=== PATIENT | male | born 1940 | race Caucasian/White ===

== ENCOUNTER 2017-04-17 09:53 | Inpatient (IN) | payer OTHER, BC ==
--- NOTE | 2017-04-17 09:56 | EDPHY ---
HPI/HX/ROS/PE/MDM Narrative: CHIEF COMPLAINT: Syncope HPI: The patient is a 76-year-old male with recent left knee replacement, brought in by EMS after multiple syncopal episodes this morning. The patient tried to get out of bed this morning and had a syncopal event. His friends tried to help him up and he had a second syncopal episode. EMS arrived, patient appeared pale, was cold and diaphoretic, pulse was difficult to palpate. After receiving 1.5 liters of fluid, BP was 112/60, patient tried to sit up and had a third syncopal event. He received another 0.5L of fluid, pressure increased to 122/82, pulse 94, 100% on 4L O2. Patient denies chest pain or shortness of breath. The patient has an ostomy bag with dark stool, he states his stool usually appears merchant tailor than today. History is otherwise limited due to patients altered mental status. REVIEW OF SYSTEMS: Aside from elements discussed in the HPI, a comprehensive 10-point review of systems was reviewed and is negative. PMH: Ulcerative colitis, Hypotension, Left knee replacement. SOCIAL HISTORY: Lives at home alone. PHYSICAL EXAM: General: Patient is alert, pale appearing. ENT: Eyes are normal to inspection. ENT inspection normal. Neck: Normal inspection. Full range of motion. Respiratory: No respiratory distress. Breath sounds normal bilaterally. Cardiovascular: Regular rate and rhythm. Strong peripheral pulses. Abdomen: The abdomen is nontender to palpation. Ostomy bag to right lower quadrant with melena. Back: Normal to inspection. No tenderness to palpation. Skin: Pale colored. No rash. Warm and dry. Extremities: Left knee looks clean dry intact. Neuro: Oriented x3. Normal motor function. Normal sensory function. ED Course: Lab work ordered. IV established, patient received IV fluids. Initial BP 81/51. CBC shows severe anemia. Packed red blood cells ordered. Plan to admit the patient. GI was paged. 10:30 a.m.: Patient is becoming increasingly more altered. BP 70/40. Hematocrit is 19. Patient is receiving O negative blood and fluids. EKG was ordered and interpreted by myself. Please see [facility] system for official reading: Sinus tachycardia, borderline prolonged QT interval. 10:35: I spoke to Dr. Regalado, [facility], he will consult on the patient. 10:45 a.m.: I spoke to the hospitalist team, the patient will be admitted to Dr. Salazar. Dr. Regalado informed me the patient has an INR of 3. Medication list now shows patient is on Xarelto. I informed the hospitalist, Dr. Salazar. MDM: Critical care time spent by me, Dr. Mejia, exclusively with this patient was 1 hour 45 minutes, exclusive of procedures. The organ system at risk was GI bleed and I gave packed red blood cells and 2L IV fluids to prevent worsening of the patients condition. The patient was admitted to the hospitalist with Dr. Regalado, Gastroenterology consulting. - Data Points Laboratory Results: Laboratory Results 04/17/17 10:12 04/17/17 10:12 04/17/17 04/17/17 04/17/17 10:12 10:12 10:12 WBC RBC Hgb Hct MCV MCH MCHC RDW Plt Count MPV Neut % (Auto) Lymph % (Auto) [place] % (Auto) Eos % (Auto) Baso % (Auto) Nucleat RBC Rel Count Absolute Neuts (auto) Absolute Lymphs (auto) Absolute Monos (auto) Absolute Eos (auto) Absolute Basos (auto) Absolute Nucleated RBC Immature Gran % Seg Neutrophils % Band Neutrophils % Lymphocytes % Monocytes % Metamyelocytes % Myelocytes % Immature Gran # Absolute Seg Neuts Absolute Band Neuts Absolute Lymphocytes Absolute Monocytes Absolute Metamyelocyte Absolute Myelocytes Nucleated RBCs Platelet Estimate Basophilic Stippling Smear Review By PT 34.6 SEC H SEC (12.0-15.0) INR 3.37 H (0.83-1.16) APTT 29.7 SEC SEC (23.0-38.0) Sodium 127 mEq/L L mEq/L (134-144) Potassium 4.1 mEq/L mEq/L (3.5-5.2) Chloride 91 mEq/L L mEq/L (97-110) Carbon Dioxide 21 mEq/l L mEq/l (22-31) Anion Gap 15 mEq/L mEq/L (8-16) BUN 75 mg/dL H mg/dL (7-23) Creatinine 2.1 mg/dL H mg/dL (0.7-1.3) Estimated GFR 31 Glucose 202 mg/dL H mg/dL (70-100) Calcium 7.4 mg/dL L mg/dL (8.5-10.4) Patient ABO/Rh O NEGATIVE Antibody Screen NEGATIVE Crossmatch IS Only See Detail 04/17/17 10:12 WBC 27.71 10^3/uL H 10^3/uL (3.80-9.50) RBC 1.95 10^6/uL L 10^6/uL (4.40-6.38) Hgb 6.7 g/dL L g/dL (13.7-17.5) Hct 19.8 % L % (40.0-51.0) MCV 101.5 fL H fL (81.5-99.8) MCH 34.4 pg H pg (27.9-34.1) MCHC 33.8 g/dL g/dL (32.4-36.7) RDW 12.9 % % (11.5-15.2) Plt Count 259 10^3/uL 10^3/uL (150-400) MPV 10.6 fL fL (8.7-11.7) Neut % (Auto) Not Reported Lymph % (Auto) Not Reported [place] % (Auto) Not Reported Eos % (Auto) Not Reported Baso % (Auto) Not Reported Nucleat RBC Rel Count 1.5 % H % (0.0-0.2) Absolute Neuts (auto) Not Reported Absolute Lymphs (auto) Not Reported Absolute Monos (auto) Not Reported Absolute Eos (auto) Not Reported Absolute Basos (auto) Not Reported Absolute Nucleated RBC 0.41 10^3/uL H 10^3/uL (0-0.01) Immature Gran % Not Reported Seg Neutrophils % 74 % % Band Neutrophils % 11 % % Lymphocytes % 3 % % Monocytes % 4 % % Metamyelocytes % 5 % % Myelocytes % 3 % % Immature Gran # Not Reported Absolute Seg Neuts 20.51 10^/uL H 10^/uL (1.70-6.50) Absolute Band Neuts 3.05 10^3/uL H 10^3/uL (0.00-0.70) Absolute Lymphocytes 0.83 10^3/uL L 10^3/uL (1.00-3.00) Absolute Monocytes 1.11 10^3/uL H 10^3/uL (0.30-0.80) Absolute Metamyelocyte 1.39 10^3/mL H 10^3/mL (0.00-0.00) Absolute Myelocytes 0.83 10^3/mL H 10^3/mL (0.00-0.00) Nucleated RBCs 2 /100 WBC H /100 WBC (0-0) Platelet Estimate ADEQUATE (ADEQ) Basophilic Stippling 1+ H Smear Review By Pending PT INR APTT Sodium Potassium Chloride Carbon Dioxide Anion Gap BUN Creatinine Estimated GFR Glucose Calcium Patient ABO/Rh Antibody Screen Crossmatch IS Only Medications Given: Discontinued Medications Sodium Chloride (Ns) 1,000 mls @ 0 mls/hr IV ONCE ONE PRN Reason: Wide Open Stop: 04/17/17 10:00 Last Admin: 04/17/17 10:46 Dose: 1,000 mls Sodium Chloride (Ns) 1,000 mls @ 0 mls/hr IV ONCE ONE PRN Reason: Wide Open Stop: 04/17/17 10:27 Last Admin: 04/17/17 10:48 Dose: 1,000 mls General Initial Vital Signs: Initial Vital Signs Temperature (C) 36.3 C 04/17/17 10:03 Heart Rate 100 04/17/17 10:03 Respiratory Rate 14 04/17/17 10:03 Blood Pressure 89/51 L 04/17/17 10:03 O2 Sat (%) 92 04/17/17 10:03 O2 Delivery Mode Room Air Allergies/Adverse Reactions: No Known Allergies Allergy (Unverified 04/17/17 10:02) Home Medications: Medication Instructions Recorded Acetaminophen [Tylenol ES 500 mg 500 mg PO DAILY PRN 04/17/17 (*)] Dutasteride [Avodart 0.5 MG (*)] 0.5 mg PO Q2D@21 04/17/17 Levothyroxine [Synthroid 150 mcg 150 mcg PO DAILY06 04/17/17 (*)] Meloxicam 7.5 mg PO BID 04/17/17 Methocarbamol [Robaxin 750 mg (*)] 750 mg PO QID PRN 04/17/17 Rivaroxaban [Xarelto 10mg (*)] 10 mg PO DAILY 04/17/17 Tamsulosin HCl [Flomax 0.4 MG (*)] 0.4 mg PO BID 04/17/17 oxyCODONE IR [Oxycodone Ir (*)] 5 - 10 mg PO Q4-6PRN PRN 04/17/17 Departure - Departure Disposition: [facility] Inpatient Acute Clinical Impression: Hemorrhagic shock, Severe anemia GI bleed Qualifiers: GI bleed type/associated pathology: melena Qualified Code(s): K92.1 - Melena Condition: Fair Report Scribed for: Alfred Mejia Report Scribed by: Monica Tello Date of Report: 04/17/17 Time of Report: 10:05 Physician Review and Approval Statement: Portions of this note were transcribed by a medical services manager. I personally performed the history, physical exam, and medical decision-making; and confirmed the accuracy of the information in the transcribed note.
[2017-04-17] MEDS ORDERED: NS 1,000 ML IV ONE ×2 (09:59→10:26)
[2017-04-17 10:18] LABS: ABSOLUTE NRBC COUNT 0.41 10^3/uL (0-0.01); ADD DIFF? YES; ATYPICAL LYMPHOCYTE FLAG 0 (0-99); FRAGMENT RBC FLAG 0 (0-99); HEMATOCRIT 19.8 % (40.0-51.0); LIPEMIA HEMOLYSIS FLAG 90 (0-99); MEAN CELL HEMOGLOBIN 34.4 pg (27.9-34.1); MEAN CELL HEMOGLOBIN CONCENTR. 33.8 g/dL (32.4-36.7); MEAN CELL VOLUME 101.5 fL (81.5-99.8); MEAN PLATELET VOLUME 10.6 fL (8.7-11.7); PLATELET CLUMPS FLAG 30 (0-99); PLATELET COUNT 259 10^3/uL (150-400); RED BLOOD CELL COUNT 1.95 10^6/uL (4.40-6.38); RED CELL DISTRIBUTION WIDTH 12.9 % (11.5-15.2)
[2017-04-17 10:19] LABS: ADD MORPH? NO; ADD SCAN? NO; HEMOGLOBIN 6.7 g/dL (13.7-17.5); LEFT SHIFT FLG 250 (0-99); NRBC-AUTO% 1.5 % (0.0-0.2)
[2017-04-17 10:30] LABS: APTT 29.7 SEC (23.0-38.0); INR 3.37 (0.83-1.16); PROTIME(PATIENT) 34.6 SEC (12.0-15.0)
--- NOTE | 2017-04-17 10:40 | CPEKG ---
Heart Rate: 96 RR Interval: 625 P-R Interval: 176 QRSD Interval: 92 QT Interval: 380 QTC Interval: 481 P Herreid: 49 QRS Herreid: 8 T Wave Herreid: 33 EKG Severity - ABNORMAL ECG - EKG Impression: SINUS TACHYCARDIA EKG Impression: MULTIPLE VENTRICULAR PREMATURE COMPLEXES EKG Impression: BORDERLINE PROLONGED QT INTERVAL Electronically Signed By: Petar Gibbs 18-Apr-2017 08:01:06
[2017-04-17 10:43] LABS: PLATELET ESTIMATE ADEQUATE (ADEQ)
[2017-04-17 10:50] LABS: ANION GAP 15 mEq/L (8-16); CALCIUM 7.4 mg/dL (8.5-10.4); CARBON DIOXIDE 21 mEq/l (22-31); CHLORIDE 91 mEq/L (97-110); CREATININE 2.1 mg/dL (0.7-1.3); GLOMERULAR FILTRATION RATE 31; GLUCOSE 202 mg/dL (70-100); POTASSIUM 4.1 mEq/L (3.5-5.2); SODIUM 127 mEq/L (134-144)
[2017-04-17] MEDS ORDERED: PANTOPRAZOLE SODIUM 80 MG in NS 100 ML IV ONE (10:53)
[2017-04-17 12:07] LABS: HEMATOCRIT 23.2 % (40.0-51.0)
[2017-04-17] MEDS ORDERED: PROMETHAZINE HCL 25 MG/ML INJ IVP PRN (12:36)
[2017-04-17] MEDS ORDERED: ONDANSETRON DISINTEGRATING 4 MG TAB PO PRN (12:36)
[2017-04-17] MEDS ORDERED: HYDROmorphONE/DILAUDID 1 MG/ML SYR IVP PRN (12:36)
[2017-04-17] MEDS ORDERED: ONDANSETRON 4 MG/2 ML VIAL IVP PRN (12:36)
[2017-04-17] MEDS ORDERED: METHOCARBAMOL 750 MG TAB PO PRN (12:40)
[2017-04-17] MEDS ORDERED: oxyCODONE IR 5 MG TAB PO PRN ×2 (12:40→12:48)
[2017-04-17 12:42] LABS: ALBUMIN 1.8 g/dL (3.5-5.0); BILIRUBIN,TOTAL 1.3 mg/dL (0.1-1.4); BILIRUBIN-CONJUGATED 0.5 mg/dL (0.0-0.5); BILIRUBIN-UNCONJUGATED 0.8 mg/dL (0.0-1.1); TOTAL PROTEIN 3.4 g/dL (6.3-8.2)
[2017-04-17] MEDS: PANTOPRAZOLE SODIUM 80 MG in NS 100 ML IV SCH ×2 (12:48→20:15)
[2017-04-17 13:36] LABS: INR 3.26 (0.83-1.16); PROTIME(PATIENT) 33.7 SEC (12.0-15.0)
--- NOTE | 2017-04-17 13:44 | GHP ---
[f rep st] HISTORY AND PHYSICAL DATE OF ADMISSION: 04/17/2017 HISTORY OF PRESENT ILLNESS: The patient is a pleasant 76-year-old gentleman who had a total knee ar throplasty last week. He was discharged from the hospital 4 days prior to admission. He was taking oxycodone at home and had significant nausea and vomiting. He had about 4 episodes of nonbloody he matemesis; there were no coffee-grounds. He did well over the weekend controlling his pain with Tyl enol. He also takes meloxicam as an outpatient. Then this morning, he developed a black stool in h is ostomy. It was fairly large volume. He had no hematemesis or coffee-ground emesis. He denies a ny history of lower extremity edema, sclerae icterus, or jaundice. He has about 2 glasses of wine i n the evening. He does not smoke cigarettes. He has not really had much in abdominal pain. He not es some burning in his throat. No fever, chills, cough, or sputum. He has not had a previously known upper GI bleed. He has had his ostomy for 47 years. It was performed because of ulcerative colitis. It sounds like he does not have symptoms any longer. The patient was prescribed rivaroxaban, or Xarelto, for VTE prophylaxis following his knee surgery. His last dose was yesterday a.m., 04/16. REVIEW OF SYSTEMS: Complete 10-point review of systems conducted and negative except as noted in th e HPI. PAST MEDICAL HISTORY: 1. Remote ulcerative colitis with ostomy. 2. BPH. 3. Hypothyroidism. 4. Osteoarthritis. 5. Hypothyroidism. ALLERGIES: No known drug allergies. MEDICATIONS: Acetaminophen, meloxicam, rivaroxaban, dutasteride, levothyroxine, methocarbamol, oxyc odone, tamsulosin. 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 He lives here in [place] with his . Two glasses of wine in the evening. No tobacco. FAMILY HISTORY: Reviewed and unremarkable. PHYSICAL EXAMINATION: VITAL SIGNS: Temp 36.3, blood pressure 89/51, pulse 100-112, breathing 14 ti mes a minute, 90% on room air. GENERAL: No acute distress. HEENT: Sclerae anicteric. Oropharynx is clear. Mucous membranes are moist. NECK: Supple without lymphadenopathy or JVD. LUNGS: Nettie r to auscultation bilaterally. HEART: S1, S2. Tachycardic. ABDOMEN: Soft. There is no ascites. There is no rebound or guarding. His ostomy contains scant black stool that is semi-solid. EXTRE MITIES: Lower extremities show there is some edema on the left, which he just had knee replacement. There is no edema on the right. His incision is clean, dry, and intact without fluctuance or eryt tiera. LABORATORY DATA: INR 3.37. White count 27.7, hematocrit is 19.8 with a hemoglobin of 6.7 after 2 u nits; it was 8 and 23.2. His MCV is elevated at 101.5, platelet count is 259. Sodium 127, potassiu m 4.1, chloride 91, bicarb 25, BUN 75, creatinine 2.1(his baseline is less than 1). His glucose is 202. LFTs show an albumin of 1.8 but are otherwise somewhat unremarkable. EKG, interpreted by me, shows sinus at 96 with normal axis and intervals. There are no ST or T-wave changes. I have discussed the case with Dr. Alfred Mejia. ASSESSMENT/PLAN: This is a 76-year-old gentleman with postoperative likely upper gastrointestinal b leed. 1. Upper gastrointestinal bleed. This is likely attributed to NSAIDs plus anticoagulation and vomi ting. I suspect he has a Sylvia-Rizvi tear. Noted is his elevated MCV and low albumin. It is pos sible patient has underlying liver disease. He does not have any physical exam findings, but I also noted INR which is elevated out of step from Xarelto therapy, although the INR is notoriously unrel iable with novel anticoagulation therapy. I will give the patient 2 additional units of blood, prot on pump inhibitor therapy in a drip. The bleeding appears to have slowed down, so we will hold off on octreotide. Should it restart, we can go ahead and start octreotide. 2. Elevated INR, attributable to Xarelto therapy plus/minus liver disease, but we will check some L FTs. 3. History of knee arthroplasty. His knee looks good. We will need to hold DVT prophylaxis for th e time being. 4. Tachycardia, attributed to acute blood loss. 5. Acute blood loss anemia from upper gastrointestinal bleed. 6. Prophylaxis. Pharmacologic prophylaxis is contraindicated. SCDs in place. 7. Benign prostatic hypertrophy. Continue his alpha omar and [id number] inhibitor. DISPOSITION: Inpatient status. /[id number]/MODL
[2017-04-17] MEDS: OCTREOTIDE ACETATE 500 MCG in D5W 50 ML IV SCH ×2 (13:46→20:14)
--- NOTE | 2017-04-17 14:24 | GCON ---
[f rep st] CONSULTATION HISTORY OF PRESENT ILLNESS: The patient is a 76-year-old white male with a past medical history of ulcerative colitis and left knee replacement. He was in the emergency room with a syncopal episode. Apparently he had passed out several times that morning. It began after getting out of bed in the morning. He was subsequently admitted to the intensive care unit. He was markedly anemic. He has been transfused 2 units of packed red cells. He has been seen by GI, anticipate endoscopy soon. Nilson long was found to have an INR of 3.0. He is on Xarelto. PAST MEDICAL HISTORY: Again significant for ulcerative colitis, left knee replacement. ALLERGIES: No known allergies to medications. SOCIAL HISTORY: No history of tobacco use. Infrequent alcohol use. He lives at home with his . He has excellent family support. MEDICATIONS: At home include meloxicam, Robaxin, Xarelto, Flomax, oxycodone. PHYSICAL EXAM: VITAL SIGNS: Blood pressure is 84/46, pulse 113, respirations 21, temperature 36.6, oxygen saturation 98% on 2 L. GENERAL: He is a well-developed, well-nourished 76-year-old white m gemini who is somewhat pale but resting comfortably. HEENT: Eyes: PERRLA. EOMI. Throat shows no er ythema or tonsillar hypertrophy. NECK: Supple. No cervical adenopathy. HEART: Regular rate and rhythm with a 2/6 systolic murmur at the left sternal border without radiation. LUNGS: Diminished breath sounds but no wheeze. ABDOMEN: Soft, nontender. Bowel sounds are present in all 4 quadrant s. EXTREMITIES: No clubbing, cyanosis, or edema. LABORATORIES: White count 27,000, hemoglobin 8, hematocrit 23, platelet count is 259, MCV is 101. INR 3.26. Sodium 127, potassium 4.1, chloride 91, CO2 21, BUN 75, creatinine 2.1, glucose is 202. IMPRESSION: 1. Gastrointestinal bleed. 2. Hemorrhagic shock. 3. Coagulopathy secondary to Xarelto. 4. Hyponatremia. 5. Acute renal failure. 6. Benign prostatic hypertrophy. 7. Hypothyroidism. RECOMMENDATIONS: 1. Agree with GI consult. 2. Follow H and H closely, transfusing appropriately. 3. IV fluids. 4. Bed rest. 5. Agree with H2 omar. /[id number]/MODL
[2017-04-17] MEDS: NS 1,000 ML IV SCH ×2 (16:33→17:40)
--- NOTE | 2017-04-17 16:35 | POSTOPPROG ---
Post Op Note Date of Operation: 04/17/17 Surgeon: Mateo Regalado Anesthesiologist: fabio Anesthesia: GET(General Endotracheal) (intubated for UGI bleed) Pre-op Diagnosis: melena, anemia acute Post-op Diagnosis: esophagitis, blood and clots in stomach precludes full view, no ulcer noted Indication: melena, acute post hemorrhagic anemia Procedure: EGD Findings: grade c esophagitis, no duodenal ulcer, blood and clots in stomach Inf/Abcess present in the surg proc area at time of surgery?: No EBL: none from egd, lots of blood in stomach Complications: none immediate
[2017-04-17 16:38] LABS: HEMATOCRIT 22.7 % (40.0-51.0); HEMOGLOBIN 7.8 g/dL (13.7-17.5)
[2017-04-17] MEDS ORDERED: ALTEPLASE 2 MG VIAL IVP PRN (17:18)
--- NOTE | 2017-04-17 17:25 | GPN ---
[f rep st] PROCEDURE NOTE DATE OF PROCEDURE: 04/17/2017 INDICATION: Presumed upper GI bleed with melena, posthemorrhagic anemia in a patient on Xarelto and nonsteroidal anti-inflammatory drugs. PREOPERATIVE DIAGNOSIS: Rule out peptic ulcer disease. POSTOPERATIVE DIAGNOSIS: 1. Grade C reflux esophagitis in the distal half of the esophagus. No active bleeding. 2. Normal duodenum without evidence of ulceration, but somewhat coated with blood 3. Normal angularis and antrum without evidence of ulceration, but somewhat coated with blood. 4. No evidence of Sylvia-Rizvi tear on forward or retroflexed view to gastroesophageal junction. 5. Large amount of blood clots and blood in the stomach that precluded complete view. INFORMED CONSENT: I discussed with the patient and his regarding the procedure alternatives, benefits, and risks, including bleeding, perforation, infection, risks of medication. Informed consent was signed and witnessed. COMPLICATIONS: None immediate. MEDICATIONS USED: General anesthesia as per Dr. Wise. PROCEDURE: After general anesthesia the patient intubated. We moved him into his left lateral decubitus position. I used the therapeutic upper endoscope, inserted via oropharynx, and advanced under direct visualization down the esophagus. The proximal esophagus was normal. The mid and distal esophagus he had grade C esophagitis. No active bleeding was noted. Significant ulcerations were noted. The endoscope was advanced into the stomach. A large amount of blood and blood clots were noted in the stomach along the greater curvature. Did a retroflexed examination to view the GE junction. There was no evidence of gastric varices or Sylvia-Rizvi tear. The endoscope was un- retroflexed and advanced down to the antrum. I had a reasonable view of the antrum, where there were no ulcerations. I was able to advance into the duodenum. I suctioned out old blood in the duodenum. I did not notice any ulcers in the duodenal bulb or sweep. I withdrew back into the stomach and tried to retroflex. Again, I was not able to view the entire stomach secondary to blood clot. We did move the patient onto his back and then into a right lateral decubitus position to try to move the blood clot. I was able to view more tissue. I did not see any ulceration or any active bleeding. Again, there was a large amount of blood and blood clots in the stomach that precluded a complete view. However, when patients have significant active bleeding, I usually see some red blood welling up somewhere, and this did not occur during the entire exam. The patient was then repositioned onto his back. I withdrew the endoscope, confirming the above findings. The patient tolerated the procedure well and was transferred to the recovery area in guarded condition from his significant GI bleed. IMPRESSION: 1. Grade C esophagitis. 2. No evidence of esophageal varices or Sylvia-Rizvi tear. 3. Normal retroflexed view of the cardia of the stomach with no evidence of Sylvia-Rizvi tear or gastric varices. 4. Normal antrum and angularis without evidence of ulcerations or mass. 5. Normal duodenum without evidence of ulcerations, but somewhat coated with blood 6. A large amount of blood and blood clot in the stomach that precluded complete view. RECOMMENDATIONS: 1. Continue PPI IV continuous. 2. I think you can stop octreotide after this bag is finished. 3. Hold anticoagulation and any aspirin or nonsteroidal anti-inflammatory drugs. 4. Continue to transfuse the patient as per the hospitalist. I would like to have his hemoglobin at least greater than 8 because I think there may be continued bleeding, although his blood loss may have been related to his grade C esophagitis. 5. Repeat EGD tomorrow morning at 8:30 with anesthesia to reassess. 6. Patient is n.p.o. except for medications. 7. We will give a dose of Reglan at 7:30 tomorrow morning to see if we can empty the stomach of any remaining blood and blood clots. 8. Hospitalist will decide about appropriate anticoagulation after this upper GI bleed has ceased and I have been able to give them an estimation of risk of rebleeding in the very near future. 9. Further recommendations to follow results of above and clinical course. Thank you for allowing me to participate in his healthcare. Please do not hesitate to call me with any questions. /[id number]/MODL MTDD
--- NOTE | 2017-04-17 17:30 | GCON ---
[f rep st] CONSULTATION DATE OF CONSULTATION: 04/17/2017 REFERRING PHYSICIAN: Quinton Salazar MD REASON FOR CONSULTATION: Presumed upper GI bleed with melena and acute post hemorrhagic anemia. HISTORY OF PRESENT ILLNESS: The patient is a pleasant 76-year-old male, who has a history of ulcer colitis, status post total colectomy back in 1970; BPH, hypothyroidism, osteoarthritis, who underwent a total knee near the end of March. He was in usual state of health until this morning when he woke up and noted to have black tarry stools in his ostomy bag. He did have some nausea and vomiting approximately 4 days prior to admission when he took oxycodone at home but none in the subsequent 3 days prior to his presentation with his melena. He had near-syncope and does not remember a whole lot from the morning. He was brought to the emergency room by his . He was noted to have significant anemia with melena in his bag in a patient, who has been on anticoagulation with Xarelto and taking some nonsteroidal anti-inflammatory medications. He is now being admitted for the above and I am called to help and evaluate an acute upper GI bleed in a patient on Xarelto. PAST MEDICAL HISTORY: Ulcer colitis, status post colectomy in 1970; BPH, hypothyroidism, osteoarthritis. SURGICAL HISTORY: Total colectomy and the knee surgery. He has also had tonsillectomy and right inguinal hernia repair. HOME MEDICATIONS: levothyroxine 150 mcg, Oxy IR prn, Tamsulosin 0.8 mg QHS, Xarelto (held), Meloxicam bid, Tylenol prn ALLERGIES: No known drug allergies. Oxycodone causes nausea, vomiting which is not truly an allergy. SOCIAL HISTORY: He does not smoke cigarettes. He drinks 2 glasses of wine a night. FAMILY HISTORY: No cancers to his knowledge, no colon polyps. REVIEW OF SYSTEMS: A complete Review of Systems was obtained and negative other than noted in the HPI. Pertinent negatives include no chest pain, diaphoresis, shortness of breath, hemoptysis, hematemesis, hematuria. PHYSICAL EXAM: GENERAL: A well-developed, well-nourished elderly male lying in his ICU bed in no acute distress. VITAL SIGNS: Blood pressure 95/50, pulse is 110, respiration 29. He is 97% on 2 L nasal cannula. Temperature is 36.6. EYES: Anicteric. GISELLE, EOMI. MOUTH: No lesions. NECK: Supple. No JVD. No thyroid mass. No lymphadenopathy. BACK: No spine tenderness. No CVA tenderness. LUNGS: Clear to auscultation. CARDIAC: S1, S2. Tachycardic. I do not appreciate murmurs, rubs or gallops. ABDOMEN: Bowel sounds are normal in pitch and frequency. Abdomen is soft with some epigastric subxiphoid tenderness. No rebound or guarding. No hepatosplenomegaly. He has melenic stools in his ostomy bag. EXTREMITIES: No cyanosis, clubbing, or edema on the right. There is slight edema on the left where he had his knee replacement. NEUROLOGIC: Cranial nerves intact. Nonfocal. SKIN: No stigmata of advanced liver disease. LABORATORY DATA: WBC 27.71, hemoglobin 6.7, hematocrit 19.8, MCV 101.5, platelet count 259. Pro time 34.6, INR 3.37, PTT 29.7. Sodium 127, potassium 4.1, chloride 91, bicarb 21, BUN 75, creatinine 2.1, glucose 202, calcium 7.4. Total bilirubin 1.3, unconjugated 0.8, AST 50, ALT 48, alk phos 61, total protein 3.4, albumin 1.8. Previous laboratory data from March 10, 2017; hemoglobin 15.4, hematocrit 44.3. Pro time 12.9, INR 0.98. From March 10, 2017; BUN 16, creatinine 0.9. ASSESSMENT: 1. Acute post hemorrhagic anemia. 2. Melena. 3. Long-term use of anticoagulation, Xarelto. 4. Long-term use of nonsteroidal anti-inflammatory medications. 5. Distant history of ulcer colitis, status post total colectomy. 6. Benign prostatic hyperplasia. 7. Hypothyroidism. RECOMMENDATIONS: 1. Transfuse as per hospitalist. 2. Given the use of Xarelto, FFP is not going to correct his pro time. There is no current reversal agent as he took his Xarelto yesterday morning. It should be off for 48 hours and have significant less effect at that time. Continue PPI. 3. Patient is on octreotide. After urgent EGD, I think we may stop that as I doubt he has varices. 4. Emergent/urgent EGD for presumed significant upper gastrointestinal bleed in this patient, who has orthostatic hypotension, tachycardia, and significant posthemorrhagic anemia. 5. Given the patient's probable continued upper gastrointestinal bleed, I am going to ask Anesthesia to be involved. I expect they will intubate the patient to protect his airway. They are expecting a lot of blood in the upper gastrointestinal tract. 6. Given all the acute issues, this will be a high-risk procedure. Patient will be monitored continuously. Anesthesia will be present to monitor the patient and sedate the patient. 7. Further recommendations to follow results of above and clinical course. Thank you for allowing me to participate in the patient's healthcare. Do not hesitate to call me with any questions. /[id number]/MODL MTDD
[2017-04-17] MEDS: TAMSULOSIN HCL 0.4 MG CAP PO SCH (20:14)
[2017-04-17 20:53] LABS: HEMOGLOBIN 10.8 g/dL (13.7-17.5)
[2017-04-17] MEDS ORDERED: DUTASTERIDE 0.5 MG CAP PO SCH (21:00)
--- NOTE | 2017-04-17 22:03 | HOSPPROG ---
Hospitalist Progress Note Assessment/Plan: Called to see patient earlier today because of hypotension, tachycardia and continued melena. Patient is mentating well denies any dizziness. Does look pale. Heart rate in the 1 teens. Blood pressure in the 70s. Last hemoglobin after 2 units of packed red blood cells stays stable at 8. I discussed the case with Gastroenterology who just did an EGD was on unable to find the source of bleeding - because of unstable vital signs we will transfuse 2 units packed red blood cells. Have also ordered a PICC line to ensure adequate IV access. Will continue monitoring H&H is frequently and transfuse as needed. Will recall GI if continuing to bleed 35 minutes of critical care time were spent with this patient Objective: Vital Signs Temp Pulse Resp BP Pulse Ox 36.6 C 119 H 18 116/68 95 04/17/17 20:00 04/17/17 20:00 04/17/17 20:00 04/17/17 20:00 04/17/17 20:00 Laboratory Results 04/17/17 20:45 04/16/17 04/17/17 04/18/17 05:59 05:59 05:59 Intake Total 7560 Output Total 1925 Balance 5635 PT 33.7 SEC (12.0-15.0) H 04/17/17 13:00 INR 3.26 (0.83-1.16) H 04/17/17 13:00 ICD10 Worksheet Patient Problems: Problems Problem Status Onset GI bleed Acute Hemorrhagic shock Acute Severe anemia Acute
[2017-04-17] MEDS ORDERED: ALBUTEROL 3 ML DEYVIAL IH PRN (23:10)
[2017-04-18 01:21] LABS: HEMATOCRIT 28.3 % (40.0-51.0); HEMOGLOBIN 10.1 g/dL (13.7-17.5)
[2017-04-18 04:47] LABS: ABSOLUTE NRBC COUNT 1.39 10^3/uL (0-0.01); ADD DIFF? YES; ADD MORPH? YES; ATYPICAL LYMPHOCYTE FLAG 10 (0-99); FRAGMENT RBC FLAG 0 (0-99); HEMOGLOBIN 9.8 g/dL (13.7-17.5); LIPEMIA HEMOLYSIS FLAG 90 (0-99); MEAN CELL HEMOGLOBIN 31.8 pg (27.9-34.1); MEAN CELL HEMOGLOBIN CONCENTR. 36.3 g/dL (32.4-36.7); MEAN CELL VOLUME 87.7 fL (81.5-99.8); MEAN PLATELET VOLUME 10.4 fL (8.7-11.7); PLATELET CLUMPS FLAG 10 (0-99); PLATELET COUNT 138 10^3/uL (150-400); RED BLOOD CELL COUNT 3.08 10^6/uL (4.40-6.38); RED CELL DISTRIBUTION WIDTH 15.9 % (11.5-15.2)
[2017-04-18 04:56] LABS: INR 1.86 (0.83-1.16); PROTIME(PATIENT) 21.5 SEC (12.0-15.0)
[2017-04-18 04:59] LABS: LEFT SHIFT FLG 180 (0-99); NRBC-AUTO% 3.9 % (0.0-0.2)
[2017-04-18 05:04] LABS: ANION GAP 6 mEq/L (8-16); CALCIUM 6.7 mg/dL (8.5-10.4); CARBON DIOXIDE 23 mEq/l (22-31); CHLORIDE 105 mEq/L (97-110); CREATININE 1.3 mg/dL (0.7-1.3); GLOMERULAR FILTRATION RATE 54; GLUCOSE 173 mg/dL (70-100); POTASSIUM 4.1 mEq/L (3.5-5.2); SODIUM 134 mEq/L (134-144)
[2017-04-18 06:05] LABS: ADD SCAN? NO
[2017-04-18 06:08] LABS: PLATELET ESTIMATE DECREASED (ADEQ)
[2017-04-18 06:09] LABS: HYPOCHROMIA 1+; MICROCYTES 1+; POLYCHROMASIA 2+
[2017-04-18] MEDS: PANTOPRAZOLE SODIUM 80 MG in NS 100 ML IV SCH ×2 (06:24→16:22)
[2017-04-18] MEDS ORDERED: METOCLOPRAMIDE 10 MG/2 ML VIAL IVP ONE (07:30)
[2017-04-18] MEDS ORDERED: MIDAZOLAM 2 MG/2 ML VIAL ONE (08:29)
[2017-04-18] MEDS ORDERED: PROPOFOL 200 MG/20 ML VIAL ONE (08:31)
--- NOTE | 2017-04-18 08:57 | PDINTPN ---
Lye Peel Operator Progress Note Assessment/Plan: Assessment/plan: * Upper GI bleed-initial endoscopy was unrevealing. -repeat endoscopy today * Anemia-has been transfused 6 units packed red cells in total. H&H has remained stable for now * Hypovolemia-still quite orthostatic. -will increase volume with both crystalloids and colloids * Bilateral lower lobe infiltrates. Likely aspiration. Patient is afebrile, but WBC count is elevated -will start antibiotics now covering aspiration * Acute renal failure-BUN and creatinine are improved. Will continue hydration * VT prophylaxis-hold anticoagulation for now continue SCDs Subjective: Resting comfortably. Feels better, except when sitting up which causes dizziness. Objective: Vital Signs Temp Pulse Resp BP Pulse Ox 36.7 C 107 H 17 113/58 L 93 04/18/17 04:00 04/18/17 06:00 04/18/17 06:00 04/18/17 06:00 04/18/17 06:00 Laboratory Results 04/18/17 04:38 04/18/17 04:38 04/17/17 04/18/17 04/19/17 05:59 05:59 05:59 Intake Total 8332.4 Output Total 3257 Balance 5075.4 PT 21.5 SEC (12.0-15.0) H D 04/18/17 04:38 INR 1.86 (0.83-1.16) H 04/18/17 04:38 Chest [id number] by myself. There are bilateral infiltrates likely aspiration Physical Exam - Physical Exam General Appearance: alert, no apparent distress EENT: PERRL/EOMI, normal ENT inspection Neck: non-tender, full range of motion, supple, normal inspection Respiratory: chest non-tender, rhonchi (Few), No lungs clear Cardiac/Chest: normal peripheral pulses, regular rate, rhythm Peripheral Pulses: 2+: carotid (R), carotid (L), femoral (R), femoral (L), dorsalis-pedis (R), dorsalis-pedis (L) Abdomen: normal bowel sounds, non-tender, soft Male Genitalia: deferred Rectal: deferred Skin: normal color, warm/dry ICD10 Worksheet Patient Problems: Problems Problem Status Onset GI bleed Acute Hemorrhagic shock Acute Severe anemia Acute
[2017-04-18] MEDS ORDERED: LIDOCAINE 2% 5 ML SDV ONE (09:02)
[2017-04-18] MEDS ORDERED: ROCURONIUM 50 MG/5 ML VIAL ONE (09:02)
[2017-04-18] MEDS ORDERED: ONDANSETRON 4 MG/2 ML VIAL ONE (09:02)
[2017-04-18] MEDS ORDERED: ALBUMIN 5% 500 ML IV ONE (09:03)
--- NOTE | 2017-04-18 09:41 | POSTOPPROG ---
Post Op Note Date of Operation: 04/18/17 Surgeon: Mateo Regalado Anesthesiologist: latricia Anesthesia: GET(General Endotracheal) Pre-op Diagnosis: ugi bleed Post-op Diagnosis: esophagitis, small duodenal ulcer without stigmata, blood and clots in stom Indication: ugi bleed Procedure: egd Findings: esophagitis, small duodenal ulcer without stigmate and blood and clots in s Inf/Abcess present in the surg proc area at time of surgery?: No EBL: Minimal (few ml) Complications: none immediate
--- NOTE | 2017-04-18 09:49 | SOAPPROG ---
[facility] Progress Note Assessment/Plan: Assessment:Plan: see full EGD dictation still with significant amount of old blood and clots in stomach grade c esophagitis with small amount of heme antrum and angularis and cardia look OK small duodenal ulcer without stigmata of bleeding moderate duodenitis with area of small amount of oozing heme rec's IV PPI if stable consider relook in few days serial Hb/HCT, transfuse if Hb < 8 in this pt or if active bleeding follow calcium - repleted during EGD by Anesthesia will discuss DVT prophylaxis with hospitalist I expect his bleeding has stopped. his anticoagulation should be returning to normal today An ulcer is more likely to have caused this sig blood loss, but there maybe more then one source given his anticoagulation Dr. Schwab is taking over inpt service at 5pm today 04/18/17 09:41 Objective: Vital Signs Temp Pulse Resp BP Pulse Ox 36.8 C 105 H 15 105/54 L 95 04/18/17 08:00 04/18/17 08:00 04/18/17 08:00 04/18/17 08:00 04/18/17 08:00 Laboratory Results 04/18/17 04:38 04/18/17 04:38 04/17/17 04/18/17 04/19/17 05:59 05:59 05:59 Intake Total 8332.4 Output Total 3257 Balance 5075.4 PT 21.5 SEC (12.0-15.0) H D 04/18/17 04:38 INR 1.86 (0.83-1.16) H 04/18/17 04:38 ICD10 Worksheet Patient Problems: Problems Problem Status Onset GI bleed Acute Hemorrhagic shock Acute Severe anemia Acute
[2017-04-18] MEDS ORDERED: CLINDAMYCIN 600 MG/DEXTROSE 50 ML IV SCH ×2 (10:00→14:00)
[2017-04-18] MEDS ORDERED: PROTOCOL CALCIUM 1 DOSE IV PRN (10:24)
--- NOTE | 2017-04-18 11:51 | GPN ---
[f rep st] PROCEDURE NOTE DATE OF PROCEDURE: 04/18/2017 PROCEDURE: Esophagogastroduodenoscopy. INDICATION: Upper GI bleed with melena, post hemorrhagic anemia with EGD having significant blood and blood clots in the stomach and unable to view the tissue well. Repeat procedure for re-evaluation. INFORMED CONSENT: I did discuss with the patient regarding the procedure, alternatives, benefits, and risks including bleeding, perforation, infection, risk of medication. PREOPERATIVE DIAGNOSIS: Rule out peptic ulcer disease. POSTOPERATIVE DIAGNOSES: 1. Grade C esophagitis. 2. Still with a large amount of blood and blood clots in the stomach. 3. No evidence of ulceration on his angularis or antrum. 4. No evidence of esophageal varices or gastric varices or Sylvia-Rizvi tear. 5. Small duodenal ulcer in the junction of the antrum in the 2nd portion with flat spot. 6. Moderate duodenitis. 7. Very fragile tissue with a small amount of heme present when this endoscope rubbed some of the gastric tissue and the duodenal tissue. DESCRIPTION OF PROCEDURE: Initially we attempted this with just propofol as I thought the patient would have finished bleeding and an empty stomach without blood in it given his stable hemoglobin overnight, and I gave him Reglan at 7: 30 this morning. He was in the left decubitus position with propofol sedation. The forward-viewing upper endoscope was inserted via the oropharynx and advanced under direct visualization down the esophagus. The proximal esophagus was normal. The mid to distal esophagus had grade C esophagitis. The endoscope was advanced into the stomach, and there was a fair amount of blood and blood clots in the stomach. I then withdrew the endoscope, and the patient was placed back into supine position and underwent general endotracheal intubation. I then had the patient remain in supine position. I reinserted the endoscope via the oropharynx and advanced under direct visualization down the esophagus. Again, the proximal esophagus was normal. The mid to distal esophagus had grade 3 esophagitis. The endoscope was advanced into the stomach. There was significant blood and blood clots. The endoscope was advanced into the antrum. The area was washed. There were no ulcerations in the antrum. The endoscope was advanced into the duodenal. There was moderate duodenitis. Multiple washings were obtained. I had a better view of the duodenum and the antrum with washings than I did yesterday. There was a very small ulcer on the junction between the bulb and the 2nd portion. It had a flat spot, no active bleeding and no stigmata that will require therapy. Moderate duodenitis was present. There is a small amount of heme in multiple areas from the mild trauma from the scope. The endoscope was withdrawn back in the stomach. A retroflexed examination was performed. In order to view more of the stomach, we then placed the patient in the left lateral decubitus position. A fair amount of blood clots was able to be removed but not entirely ; again, I had a limited view of the gastric body and greater curvature of the stomach. In addition, there was some blood in the antrum and angularis but I washed it off reasonably well, and I do not think there are any significant ulcerations underneath that. I attempted to suction all the blood and clean it as much as I could, but the blood clots prevented this. I removed as much of the liquid blood as I could. And we then removed all the air. The endoscope was then completely withdrawn, confirming the above findings. The patient tolerated the procedure well and was transferred to recovery area in continued guarded condition. IMPRESSION: 1. Grade C esophagitis with a small amount of heme. 2. Blood clots and blood in the fundus and body of the stomach. 3. Normal-appearing antrum and angularis. 4. Small ulcer in the duodenum between the bulb and the 2nd portion with flat spot and no active bleeding and no stigmata that required treatment. 5. Moderate duodenitis with friable tissue. RECOMMENDATIONS: 1. Continue IV PPI. 2. Serial hemoglobins and hematocrits. 3. Keep n.p.o. for now. 4. If patient remains stable, would advance to clear liquids later and consider endoscopy in a few days. If patient is unstable, then would consider endoscopy and/or some type a bleeding scan. I think that the risk of continued bleeding is quite low given that the anticoagulation should be returning to normal. He has not had his Xarelto for approximately 48 hours. 5. We will discuss with Dr. Salazar regarding the need for DVT prophylaxis. I would prefer him to be off anticoagulation for another day if possible. 6. Transfuse if hemoglobin becomes less than 8 or for any active bleeding. 7. Hold anticoagulation and antiplatelet medications at present. 8. Further recommendations to follow the results of above and clinical course. Thank you for allowing me to participate in this patient's healthcare. Do not hesitate to call me with any questions. /[id number]/MODL MTDD
[2017-04-18 12:04] LABS: HEMATOCRIT 23.7 % (40.0-51.0); HEMOGLOBIN 8.4 g/dL (13.7-17.5)
[2017-04-18] MEDS ORDERED: NS 1,000 ML IV ONE (12:30)
--- NOTE | 2017-04-18 13:00 | HOSPPROG ---
Hospitalist Progress Note Assessment/Plan: 76 yo M w hypothyroidism, recent TKA admitted w UGIB. now about to get 7th unit of blood UGIB: endosocopy X 2 w esophagitis and smal DU bit no active bleeding continue transfusions, ppi etiology likely NSAIDS plus anticoag coagulopathy: xarelto likely largely worn off given large volume transfusion, will give ffp follow inr daily hypotension: 2/2 ongoing blood loss = hemorrhagic shock. tachycardic but not hypotensive pulm infiltrates: likely aspiration pneumonia started on clindamycin leukocytosis: attributable to ugib plus aspirtaion proph: high risk for VTE but actively bleeding so cannot use pharm VTE proph scd's Subjective: case discussed w wale sweeney and nirav. continues to bleed. repeat egd w small DU and esophagitis Objective: Vital Signs Temp Pulse Resp BP Pulse Ox 36.8 C 101 H 18 102/49 L 96 04/18/17 10:44 04/18/17 12:00 04/18/17 12:00 04/18/17 12:00 04/18/17 12:00 Laboratory Results 04/18/17 11:46 04/18/17 04:38 04/17/17 04/18/17 04/19/17 05:59 05:59 05:59 Intake Total 8332.4 500 Output Total 3257 50 Balance 5075.4 450 PT 21.5 SEC (12.0-15.0) H D 04/18/17 04:38 INR 1.86 (0.83-1.16) H 04/18/17 04:38 - Physical Exam Constitutional: no apparent distress, appears nourished Eyes: PERRL, anicteric sclera Ears, Nose, Mouth, Throat: moist mucous membranes, hearing normal Cardiovascular: regular rate and rhythym, no murmur, rub, or gallop Respiratory: no respiratory distress, no rales or rhonchi Gastrointestinal: normoactive bowel sounds, soft, non-tender abdomen, No guarding, No rebound Genitourinary: No felix in urethra Skin: warm, normal color Musculoskeletal: full muscle strength, no muscle tenderness Neurologic: AAOx3, sensation intact bilaterally Psychiatric: interacting appropriately, not anxious Lymph, Heme, Immunologic: no cervical LAD ICD10 Worksheet Patient Problems: Problems Problem Status Onset GI bleed Acute Hemorrhagic shock Acute Severe anemia Acute
[2017-04-18] MEDS: TAMSULOSIN HCL 0.4 MG CAP PO SCH (13:16)
[2017-04-18] MEDS: LEVOTHYROXINE 150 MCG TAB PO SCH (13:16)
[2017-04-18] MEDS: NS 1,000 ML IV SCH (16:30)
[2017-04-18 17:50] LABS: HEMATOCRIT 24.8 % (40.0-51.0)
[2017-04-18] MEDS: CLINDAMYCIN 600 MG/DEXTROSE 50 ML IV SCH (19:15)
[2017-04-18 23:21] LABS: HEMATOCRIT 22.9 % (40.0-51.0); HEMOGLOBIN 8.2 g/dL (13.7-17.5)
[2017-04-19] MEDS: DUTASTERIDE 0.5 MG CAP PO SCH (00:10)
[2017-04-19] MEDS: PANTOPRAZOLE SODIUM 80 MG in NS 100 ML IV SCH (02:53)
[2017-04-19] MEDS: CLINDAMYCIN 600 MG/DEXTROSE 50 ML IV SCH ×3 (02:53→17:11)
[2017-04-19 03:18] LABS: IONIZED CALCIUM 1.15 MMOL/L (1.12-1.30)
[2017-04-19 03:21] LABS: HEMATOCRIT 23.1 % (40.0-51.0); HEMOGLOBIN 8.1 g/dL (13.7-17.5)
[2017-04-19 03:30] LABS: INR 1.27 (0.83-1.16); PROTIME(PATIENT) 15.9 SEC (12.0-15.0)
[2017-04-19 04:15] LABS: ABSOLUTE NRBC COUNT 1.85 10^3/uL (0-0.01); ADD DIFF? YES; ADD MORPH? YES; ATYPICAL LYMPHOCYTE FLAG 10 (0-99); FRAGMENT RBC FLAG 0 (0-99); LIPEMIA HEMOLYSIS FLAG 90 (0-99); MEAN CELL HEMOGLOBIN 31.8 pg (27.9-34.1); MEAN CELL HEMOGLOBIN CONCENTR. 34.6 g/dL (32.4-36.7); MEAN CELL VOLUME 91.8 fL (81.5-99.8); MEAN PLATELET VOLUME 10.2 fL (8.7-11.7); PLATELET CLUMPS FLAG 0 (0-99); PLATELET COUNT 107 10^3/uL (150-400); RED BLOOD CELL COUNT 2.55 10^6/uL (4.40-6.38); RED CELL DISTRIBUTION WIDTH 16.6 % (11.5-15.2)
[2017-04-19 04:27] LABS: ADD SCAN? NO; LEFT SHIFT FLG 240 (0-99); NRBC-AUTO% 5.9 % (0.0-0.2)
[2017-04-19 04:34] LABS: ANION GAP 5 mEq/L (8-16); CALCIUM 7.6 mg/dL (8.5-10.4); CARBON DIOXIDE 25 mEq/l (22-31); CHLORIDE 109 mEq/L (97-110); CREATININE 0.9 mg/dL (0.7-1.3); GLOMERULAR FILTRATION RATE > 60; GLUCOSE 93 mg/dL (70-100); POTASSIUM 3.6 mEq/L (3.5-5.2); SODIUM 139 mEq/L (134-144)
[2017-04-19 06:52] LABS: PLATELET ESTIMATE DECREASED (ADEQ); POLYCHROMASIA 2+; TOXIC GRANULATION PRESENT
[2017-04-19] MEDS: LEVOTHYROXINE 150 MCG TAB PO SCH (07:54)
[2017-04-19] MEDS: NS 1,000 ML IV SCH (09:05)
--- NOTE | 2017-04-19 09:36 | PDINTPN ---
Pier Master Progress Note Assessment/Plan: Assessment/plan: * Upper GI bleed- * Anemia-hemoglobin and hematocrit a little down. -old transfusion for now * Hypovolemia-resolved * Bilateral lower lobe infiltrates. Likely aspiration. Patient is afebrile, but WBC count is elevated -will start antibiotics now covering aspiration * Acute renal failure-BUN and creatinine are improved. Will continue hydration * VT prophylaxis-hold anticoagulation for now continue SCDs * Disposition-okay for transfer to floor Subjective: Up in chair-resting comfortably Objective: Vital Signs Temp Pulse Resp BP Pulse Ox 36.6 C 90 19 136/53 H 94 04/19/17 08:00 04/19/17 08:00 04/19/17 08:00 04/19/17 08:00 04/19/17 08:00 Laboratory Results 04/19/17 03:00 04/19/17 03:30 04/18/17 04/19/17 04/20/17 05:59 05:59 05:59 Intake Total 8332.4 4311 Output Total 3257 3500 275 Balance 5075.4 811 -275 PT 15.9 SEC (12.0-15.0) H 04/19/17 03:00 INR 1.27 (0.83-1.16) H 04/19/17 03:00 Laboratory Results 04/19/17 03:00 04/19/17 03:30 04/19/17 04/18/17 04/18/17 03:00 23:03 17:30 Hgb 8.2 g/dL L g/dL 9.0 g/dL L g/dL (13.7 - 17.5) (13.7 - 17.5) Hct 22.9 % L % 24.8 % L % (40.0 - 51.0) (40.0 - 51.0) INR 1.27 H (0.83 - 1.16) Physical Exam - Physical Exam General Appearance: alert, no apparent distress EENT: PERRL/EOMI, normal ENT inspection, pharynx normal, TMs normal Neck: non-tender, full range of motion, supple, normal inspection Respiratory: chest non-tender, lungs clear, normal breath sounds Cardiac/Chest: normal peripheral pulses, regular rate, rhythm Abdomen: normal bowel sounds, non-tender, soft Male Genitalia: deferred Rectal: deferred Skin: normal color, warm/dry Extremities: normal range of motion, non-tender, normal inspection, normal capillary refill ICD10 Worksheet Patient Problems: Problems Problem Status Onset GI bleed Acute Hemorrhagic shock Acute Severe anemia Acute
--- NOTE | 2017-04-19 09:57 | HOSPPROG ---
Hospitalist Progress Note Assessment/Plan: 76 yo M w hypothyroidism, recent TKA admitted w UGIB. now about to get 7th unit of blood UGIB: endosocopy X 2 w esophagitis and small DU but no active bleeding etiology likely NSAIDS plus anticoag appears to have stabilized hold prophylactic anticoag add'l day coagulopathy: xarelto likely largely worn off given large volume transfusion, will give ffp inr improving follow inr daily hypotension: 2/2 ongoing blood loss = hemorrhagic shock. tachycardic but not hypotensive pulm infiltrates: likely aspiration pneumonia started on clindamycin day 3 leukocytosis: attributable to ugib plus aspirtaion proph: high risk for VTE but actively bleeding so cannot use pharm VTE proph scd's plan is to start LMWH 04/20 Subjective: case d.w wale gastelum and patel. HR down, hct stable Objective: Vital Signs Temp Pulse Resp BP Pulse Ox 36.6 C 90 19 136/53 H 94 04/19/17 08:00 04/19/17 08:00 04/19/17 08:00 04/19/17 08:00 04/19/17 08:00 Laboratory Results 04/19/17 03:00 04/19/17 03:30 04/18/17 04/19/17 04/20/17 05:59 05:59 05:59 Intake Total 8332.4 4311 Output Total 3257 3500 275 Balance 5075.4 811 -275 PT 15.9 SEC (12.0-15.0) H 04/19/17 03:00 INR 1.27 (0.83-1.16) H 04/19/17 03:00 - Physical Exam Constitutional: no apparent distress, appears nourished Eyes: PERRL, anicteric sclera Ears, Nose, Mouth, Throat: moist mucous membranes, hearing normal Cardiovascular: regular rate and rhythym, no murmur, rub, or gallop, No tachycardia Respiratory: no respiratory distress, other (bibasilar crackles), No no rales or rhonchi Gastrointestinal: normoactive bowel sounds, soft, non-tender abdomen Genitourinary: No felix in urethra Skin: warm, normal color Musculoskeletal: full muscle strength, no muscle tenderness, other (hand edema. L knee incision c/d/i) Neurologic: AAOx3, sensation intact bilaterally Psychiatric: interacting appropriately, not anxious ICD10 Worksheet Patient Problems: Problems Problem Status Onset GI bleed Acute Hemorrhagic shock Acute Severe anemia Acute
--- NOTE | 2017-04-19 11:29 | SOAPPROG ---
SOAP Progress Note Assessment/Plan: Assessment: GIB with esophagitis and DU still passing melena which is to be expected given large amount of old blood seen in stomach. Otherwise clinically stable suspect bleeding has stopped. Patient does not want another EGD Plan: Clear liquids today Continue IV PPI thigh today Consider IR if rebleeds 04/19/17 11:26 Subjective: CC melena Pt with out pain no N?V still with melena Objective: Vital Signs Temp Pulse Resp BP Pulse Ox 36.6 C 90 18 121/60 H 97 04/19/17 08:00 04/19/17 10:00 04/19/17 10:00 04/19/17 10:00 04/19/17 10:00 Laboratory Results 04/19/17 03:00 04/19/17 03:30 04/18/17 04/19/17 04/20/17 05:59 05:59 05:59 Intake Total 8332.4 4311 36 Output Total 3257 3500 450 Balance 5075.4 811 -414 PT 15.9 SEC (12.0-15.0) H 04/19/17 03:00 INR 1.27 (0.83-1.16) H 04/19/17 03:00 Physical Exam - Physical Exam General Appearance: alert, no apparent distress Respiratory: lungs clear Cardiac/Chest: regular rate, rhythm Abdomen: non-tender, soft ICD10 Worksheet Patient Problems: Problems Problem Status Onset GI bleed Acute Hemorrhagic shock Acute Severe anemia Acute
[2017-04-19 13:20] LABS: HEMATOCRIT 25.1 % (40.0-51.0); HEMOGLOBIN 8.8 g/dL (13.7-17.5)
[2017-04-19] MEDS: ACETAMINOPHEN 325 MG TAB PO PRN ×2 (13:22→21:16)
[2017-04-19] MEDS: PANTOPRAZOLE SODIUM 40 MG in NS 100 ML IV SCH (21:16)
[2017-04-20] MEDS: CLINDAMYCIN 600 MG/DEXTROSE 50 ML IV SCH (01:48)
[2017-04-20] MEDS: LEVOTHYROXINE 150 MCG TAB PO SCH (04:59)
[2017-04-20 05:10] LABS: ABSOLUTE NRBC COUNT 1.77 10^3/uL (0-0.01); ADD DIFF? YES; ATYPICAL LYMPHOCYTE FLAG 0 (0-99); FRAGMENT RBC FLAG 0 (0-99); HEMATOCRIT 25.8 % (40.0-51.0); HEMOGLOBIN 8.9 g/dL (13.7-17.5); LIPEMIA HEMOLYSIS FLAG 90 (0-99); MEAN CELL HEMOGLOBIN 32.1 pg (27.9-34.1); MEAN CELL HEMOGLOBIN CONCENTR. 34.5 g/dL (32.4-36.7); MEAN CELL VOLUME 93.1 fL (81.5-99.8); MEAN PLATELET VOLUME 10.4 fL (8.7-11.7); PLATELET CLUMPS FLAG 10 (0-99); PLATELET COUNT 112 10^3/uL (150-400); RED BLOOD CELL COUNT 2.77 10^6/uL (4.40-6.38); RED CELL DISTRIBUTION WIDTH 17.8 % (11.5-15.2)
[2017-04-20 05:16] LABS: IONIZED CALCIUM 1.11 MMOL/L (1.12-1.30)
[2017-04-20 05:19] LABS: INR 1.13 (0.83-1.16); PROTIME(PATIENT) 14.4 SEC (12.0-15.0)
[2017-04-20 05:20] LABS: LEFT SHIFT FLG 160 (0-99); NRBC-AUTO% 5.6 % (0.0-0.2)
[2017-04-20 05:21] LABS: ADD MORPH? NO; ADD SCAN? NO
[2017-04-20 05:39] LABS: ALANINE AMINOTRANSFERASE 66 IU/L (21-72); ALBUMIN 2.2 g/dL (3.5-5.0); ALKALINE PHOSPHATASE 63 IU/L (38-126); ANION GAP 4 mEq/L (8-16); ASPARTATE AMINOTRANSFERASE 62 IU/L (17-59); BILIRUBIN,TOTAL 1.6 mg/dL (0.1-1.4); BILIRUBIN-CONJUGATED 0.4 mg/dL (0.0-0.5); BILIRUBIN-UNCONJUGATED 1.2 mg/dL (0.0-1.1); CALCIUM 7.8 mg/dL (8.5-10.4); CARBON DIOXIDE 23 mEq/l (22-31); CHLORIDE 110 mEq/L (97-110); CREATININE 0.8 mg/dL (0.7-1.3); GLOMERULAR FILTRATION RATE > 60; GLUCOSE 104 mg/dL (70-100); POTASSIUM 3.5 mEq/L (3.5-5.2); SODIUM 137 mEq/L (134-144); TOTAL PROTEIN 4.1 g/dL (6.3-8.2)
[2017-04-20 06:03] LABS: PLATELET ESTIMATE DECREASED (ADEQ)
[2017-04-20 06:04] LABS: POLYCHROMASIA 2+
[2017-04-20] MEDS ORDERED: CALCIUM GLUCONATE 50 ML IV ONE (07:33)
--- NOTE | 2017-04-20 09:13 | HOSPPROG ---
Hospitalist Progress Note Assessment/Plan: 76 yo M w hypothyroidism, recent TKA admitted w UGIB. now about to get 7th unit of blood UGIB: endosocopy X 2 w esophagitis and small DU but no active bleeding etiology likely NSAIDS plus anticoag appears to have stabilized start LMWH today change ppi to po coagulopathy: xarelto likely largely worn off given large volume transfusion, will give ffp inr improving follow inr daily hypotension: 2/2 ongoing blood loss = hemorrhagic shock. tachycardic but not hypotensive pulm infiltrates: likely aspiration pneumonia change abx to augmentin leukocytosis: attributable to ugib plus aspiration proph: high risk for VTE but actively bleeding so cannot use pharm VTE proph scd's plan is to start LMWH 04/20 Subjective: no further bleeding. hct stable. case d/w dr baca Objective: Vital Signs Temp Pulse Resp BP Pulse Ox 36.9 C 83 16 121/70 H 97 04/20/17 08:00 04/20/17 08:00 04/20/17 08:00 04/20/17 08:00 04/20/17 08:00 Laboratory Results 04/20/17 05:00 04/20/17 05:00 04/19/17 04/20/17 04/21/17 05:59 05:59 05:59 Intake Total 4311 1336 Output Total 3500 1850 Balance 811 -514 PT 14.4 SEC (12.0-15.0) 04/20/17 05:00 INR 1.13 (0.83-1.16) 04/20/17 05:00 - Physical Exam Constitutional: no apparent distress, appears nourished Eyes: PERRL, anicteric sclera Ears, Nose, Mouth, Throat: moist mucous membranes, hearing normal Cardiovascular: regular rate and rhythym, no murmur, rub, or gallop Respiratory: no respiratory distress, no rales or rhonchi Gastrointestinal: normoactive bowel sounds, soft, non-tender abdomen, other ( dark (not black) liquid stool in bag) Genitourinary: No felix in urethra Skin: warm, normal color Musculoskeletal: full muscle strength, no muscle tenderness Neurologic: AAOx3, sensation intact bilaterally Psychiatric: interacting appropriately, not anxious ICD10 Worksheet Patient Problems: Problems Problem Status Onset GI bleed Acute Hemorrhagic shock Acute Severe anemia Acute
[2017-04-20] MEDS: ACETAMINOPHEN 325 MG TAB PO PRN ×3 (09:20→21:34)
[2017-04-20] MEDS: TAMSULOSIN HCL 0.4 MG CAP PO SCH ×2 (09:20→21:29)
[2017-04-20] MEDS: PANTOPRAZOLE SODIUM 40 MG in NS 100 ML IV SCH (09:49)
[2017-04-20] MEDS: ENOXAPARIN 40 MG/0.4 ML SYR SC SCH (10:12)
--- NOTE | 2017-04-20 10:32 | SOAPPROG ---
SOAP Progress Note Assessment/Plan: Assessment: GIB with esophagitis and DU still passing melena which is to be expected given large amount of old blood seen in stomach. No signs of rebleeding. Patient dose not want another EGD. Plan: OK to change to PPI PI BID for 4 weeks then once daily Can advance diet slowly as tolerated Will sign off for now. Consider IR if rebleeding 04/20/17 10:30 Subjective: CC Melena Still passing dark stools but otherwise feels better Objective: Vital Signs Temp Pulse Resp BP Pulse Ox 36.3 C 79 16 137/78 H 95 04/20/17 08:00 04/20/17 08:00 04/20/17 08:00 04/20/17 08:00 04/20/17 08:00 Laboratory Results 04/20/17 05:00 04/20/17 05:00 04/19/17 04/20/17 04/21/17 05:59 05:59 05:59 Intake Total 4311 1336 Output Total 3500 1850 Balance 811 -514 PT 14.4 SEC (12.0-15.0) 04/20/17 05:00 INR 1.13 (0.83-1.16) 04/20/17 05:00 Physical Exam - Physical Exam General Appearance: WD/WN, alert Respiratory: lungs clear Cardiac/Chest: regular rate, rhythm Abdomen: normal bowel sounds, non-tender ICD10 Worksheet Patient Problems: Problems Problem Status Onset GI bleed Acute Hemorrhagic shock Acute Severe anemia Acute
[2017-04-20] MEDS: AMOXICILLIN/CLAVULANATE POT 875/125 MG TAB PO SCH (21:28)
[2017-04-20] MEDS: PANTOPRAZOLE SODIUM 40 MG TAB PO SCH (21:29)
[2017-04-20] MEDS: DUTASTERIDE 0.5 MG CAP PO SCH (21:29)
[2017-04-21] MEDS: AMOXICILLIN/CLAVULANATE POT 875/125 MG TAB PO SCH (09:30)
[2017-04-21] MEDS: ENOXAPARIN 40 MG/0.4 ML SYR SC SCH (09:30)
[2017-04-21] MEDS: TAMSULOSIN HCL 0.4 MG CAP PO SCH (09:30)
[2017-04-21] MEDS: PANTOPRAZOLE SODIUM 40 MG TAB PO SCH (09:30)
--- NOTE | 2017-04-21 11:17 | HOSPPROG ---
Hospitalist Progress Note Assessment/Plan: 76 yo M w hypothyroidism, recent TKA admitted w UGIB. now about to get 7th unit of blood UGIB: endosocopy X 2 w esophagitis and small DU but no active bleeding etiology likely NSAIDS plus anticoag appears to have stabilized stable on LMWH coagulopathy: xarelto likely largely worn off given large volume transfusion, will give ffp inr improving follow inr daily hypotension: 2/2 ongoing blood loss = hemorrhagic shock. tachycardic but not hypotensive pulm infiltrates: likely aspiration pneumonia change abx to augmentin leukocytosis: attributable to ugib plus aspiration proph: high risk for VTE but actively bleeding so cannot use pharm VTE proph scd's plan is to start LMWH / home today > 30 minutes Subjective: ready for dc. hct stable Objective: Vital Signs Temp Pulse Resp BP Pulse Ox 36.7 C 76 14 139/81 H 95 04/21/17 00:11 04/21/17 00:11 04/21/17 00:11 04/21/17 00:11 04/21/17 00:11 Laboratory Results 04/20/17 05:00 04/20/17 04/21/17 04/22/17 05:59 05:59 05:59 Intake Total 1336 2600 Output Total 1850 Balance -514 2600 PT 14.4 SEC (12.0-15.0) 04/20/17 05:00 INR 1.13 (0.83-1.16) 04/20/17 05:00 - Physical Exam Constitutional: no apparent distress, appears nourished Eyes: PERRL, anicteric sclera Ears, Nose, Mouth, Throat: moist mucous membranes, hearing normal Cardiovascular: regular rate and rhythym, no murmur, rub, or gallop, systolic murmur Respiratory: no respiratory distress, no rales or rhonchi Gastrointestinal: normoactive bowel sounds, soft, non-tender abdomen Genitourinary: no bladder fullness, No felix in urethra Skin: warm, normal color Musculoskeletal: full muscle strength Neurologic: AAOx3 ICD10 Worksheet Patient Problems: Problems Problem Status Onset GI bleed Acute Hemorrhagic shock Acute Severe anemia Acute
[2017-04-21 11:24] VITALS: BP 145/78; PULSE 75; RESP 16; TEMP 97.7; O2SAT 94
[2017-04-21] MEDS: LEVOTHYROXINE 150 MCG TAB PO SCH (11:29)
[2017-04-21 13:49] LABS: ABSOLUTE NRBC COUNT 0.69 10^3/uL (0-0.01); ADD DIFF? YES; ADD MORPH? YES; ADD SCAN? YES; ATYPICAL LYMPHOCYTE FLAG 10 (0-99); FRAGMENT RBC FLAG 20 (0-99); HEMATOCRIT 30.1 % (40.0-51.0); HEMOGLOBIN 10.5 g/dL (13.7-17.5); LIPEMIA HEMOLYSIS FLAG 90 (0-99); MEAN CELL HEMOGLOBIN 32.8 pg (27.9-34.1); MEAN CELL HEMOGLOBIN CONCENTR. 34.9 g/dL (32.4-36.7); MEAN CELL VOLUME 94.1 fL (81.5-99.8); MEAN PLATELET VOLUME 10.8 fL (8.7-11.7); PLATELET CLUMPS FLAG 10 (0-99); PLATELET COUNT 152 10^3/uL (150-400); RED CELL DISTRIBUTION WIDTH 18.9 % (11.5-15.2)
[2017-04-21 13:50] LABS: LEFT SHIFT FLG 160 (0-99); NRBC-AUTO% 2.6 % (0.0-0.2)
[2017-04-21 13:52] LABS: MICROCYTES 1+; PLATELET ESTIMATE ADEQUATE (ADEQ)
[2017-04-21 13:53] LABS: POLYCHROMASIA 1+
== END 2017-04-21 13:42 | disposition home or self-care (01) | DRG 377 ==
LOC: EDUNIT# → F2N 11:40 → F1N 04-19 16:29
PROVIDERS: ADMIT Internal Medicine; ATTEND Internal Medicine
PROC: 30233K1 Transfusion of Nonautologous Frozen Plasma into Peripheral Vein, Percutaneous Approach (ICD-10-PCS; 2017-04-17)
PROC: 30233P1 Transfusion of Nonautologous Frozen Red Cells into Peripheral Vein, Percutaneous Approach (ICD-10-PCS; 2017-04-17)
PROC: 02HV33Z Insertion of Infusion Device into Superior Vena Cava, Percutaneous Approach (ICD-10-PCS; 2017-04-17)
PROC: 0DJ68ZZ Inspection of Stomach, Via Natural or Artificial Opening Endoscopic (ICD-10-PCS; principal; 2017-04-17 15:00)
PROC: 0DJ08ZZ Inspection of Upper Intestinal Tract, Via Natural or Artificial Opening Endoscopic (ICD-10-PCS; principal; 2017-04-17 15:00)
PROC: 0DJ68ZZ Inspection of Stomach, Via Natural or Artificial Opening Endoscopic (ICD-10-PCS; 2017-04-18)
PROC: 0DJ08ZZ Inspection of Upper Intestinal Tract, Via Natural or Artificial Opening Endoscopic (ICD-10-PCS; 2017-04-18)
DX: K26.4 Chronic or unspecified duodenal ulcer with hemorrhage (principal); J69.0 Pneumonitis due to inhalation of food and vomit; K29.81 Duodenitis with bleeding; K20.9 Esophagitis, unspecified; D62 Acute posthemorrhagic anemia; R55 Syncope and collapse; E03.9 Hypothyroidism, unspecified; N40.0 Benign prostatic hyperplasia without lower urinary tract symptoms; N17.9 Acute kidney failure, unspecified; T39.395A Adverse effect of other nonsteroidal anti-inflammatory drugs [NSAID], initial encounter; Z96.652 Presence of left artificial knee joint; Z98.890 Other specified postprocedural states; Z93.3 Colostomy status
CPT/HCPCS: 97110-GP; 97116-GP; 97162-GP; 97166-GO; 97530-GP; 97535-GO; C1751; G8978-GP-CJ; G8979-GP-CI; G8980-GP-CI; G8987-GO-CJ; G8988-GO-CI; G8989-GO-CI; J0610; J1650; J2250; J2353; J2405; J2704; J2765; P9016; P9017; P9021

== ENCOUNTER 2017-04-28 17:42 | Emergency (ER) | payer OTHER, BC ==
[2017-04-28 17:51] VITALS: RESP 16
--- NOTE | 2017-04-28 18:51 | EDPHY ---
H & P Stated Complaint: u/s today dvt left leg, recent knee surgery Time Seen by Provider: 04/28/17 18:27 HPI/ROS: CHIEF COMPLAINT: DVT HISTORY OF PRESENT ILLNESS: The patient is a 76-year-old man who comes to the emergency department complaining of a DVT to his left calf. He was following up with Dr. Kenney his primary physician today who ordered an ultrasound. A DVT was found him sent here to the ER. He is currently on once a day dosing of Lovenox. He is not sure of the dose. Previously he after the knee replacement 2 weeks ago he was taking Xarelto but had a GI bleed and was hospitalized and transfused. At this point he was changed to once a day dosing of Lovenox. He does not have a fever. No chest pain or shortness of breath. REVIEW OF SYSTEMS: Constitutional: denies: chills, fever, recent illness, recent injury EENTM: denies: blurred vision, double vision, nose congestion Respiratory: denies: cough, shortness of breath Cardiac: denies: chest pain, irregular heart rate, lightheadedness, palpitations Gastrointestinal/Abdominal: denies: abdominal pain, diarrhea, nausea, vomiting, blood streaked stools Genitourinary: denies: dysuria, frequency, hematuria, pain Musculoskeletal: See HPI Skin: denies: lesions, rash, jaundice, bruising Neurological: denies: headache, numbness, paresthesia, tingling, dizziness, weakness Hematologic/Lymphatic: denies: blood clots, easy bleeding, easy bruising Immunologic/allergic: denies: HIV/AIDS, transplant EXAM: GENERAL: Well-appearing, well-nourished and in no acute distress. HEAD: Atraumatic, normocephalic. EYES: Pupils equal round and reactive to light, extraocular movements intact, sclera anicteric, conjunctiva are normal. ENT: TMs normal, nares patent, oropharynx clear without exudates. Moist mucous membranes. NECK: Normal range of motion, supple without lymphadenopathy or JVD. LUNGS: Breath sounds clear to auscultation bilaterally and equal. No wheezes rales or rhonchi. HEART: Regular rate and rhythm without murmurs, rubs or gallops. ABDOMEN: Soft, nontender, normoactive bowel sounds. No guarding, no rebound. No masses appreciated. BACK: No CVA tenderness, no spinal tenderness, step-offs or deformities EXTREMITIES: Minimal swelling in left ankle. No calf tenderness, left knee with mild swelling, wound is clean dry and intact. NEUROLOGICAL: Cranial nerves II through XII grossly intact. Normal speech, normal gait. 5/5 strength, normal movement in all extremities, normal sensation PSYCH: Normal mood, normal affect. SKIN: Warm, dry, normal turgor, no visible rashes or lesions. 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 enlarged prostate, hypo thyroid - Family History Significant Family History: No pertinent family hx - Social History Smoking Status: Former smoker Alcohol Use: Sober Drug Use: None Constitutional: Initial Vital Signs Temperature (C) 36.4 C 04/28/17 17:48 Heart Rate 74 04/28/17 17:48 Respiratory Rate 16 04/28/17 17:48 Blood Pressure 127/74 H 04/28/17 17:48 O2 Sat (%) 98 04/28/17 17:48 O2 Delivery Mode Room Air Allergies/Adverse Reactions: oxycodone Allergy (Verified 04/28/17 17:45) Home Medications: Medication Instructions Recorded Dutasteride [Avodart 0.5 MG (*)] 0.5 mg PO Q2D@21 04/17/17 Levothyroxine [Synthroid 150 mcg 150 mcg PO DAILY06 04/17/17 (*)] Enoxaparin [Lovenox 40 MG (*)] 40 mg SC DAILY #14 syr 04/21/17 Cephalexin [Keflex] 500 mg PO TID #21 cap 04/28/17 Medical Decision Making ED Course/Re-evaluation: 7:15 p.m. I spoke with Dr. Kenney and then with Dr. Michelle Subramanian. We agreed the safest course of action in this patient with a recent severe GI bleed would be to keep him on the prophylactic dose of Lovenox and had a follow-up ultrasound in 3-5 days to see if there is extension. I spoke with the patient and his . They understand and agree with this plan. They will follow up with Dr. Patel for outpatient ultrasound. Patient was also found at Dr. Aggarwal office to have a mild urinary tract infection. I will start him on Keflex. Differential Diagnosis: Partial list of the Differential diagnosis considered include but were not limited to; DVT, edema and although unlikely based on the history and physical exam, I also considered infection, GI bleed. I discussed these differential diagnoses and the plan with the patient as well as the usual and expected course. The patient understands that the diagnosis is provisional and that in medicine we are not always correct and that further workup is often warranted. Usual and customary warnings were given. All of the patient's questions were answered. The patient was instructed to return to the emergency department should the symptoms at all worsen or return, otherwise to followup with the physician as we discussed. - Data Points Medications Given: Discontinued Medications Cephalexin HCl (Keflex) 500 mg PO EDNOW ONE PRN Reason: Protocol Stop: 04/28/17 19:35 Last Admin: 04/28/17 19:53 Dose: 500 mg Departure - Departure Disposition: Home, Routine, Self-Care Clinical Impression: DVT (deep venous thrombosis) Qualifiers: DVT location: lower extremity Affected thrombotic vein of extremity: unspecified vein of extremity Chronicity: acute Laterality: unspecified laterality Qualified Code(s): I82.409 - Acute embolism and thrombosis of unspecified deep veins of unspecified lower extremity UTI (urinary tract infection) Qualifiers: Urinary tract infection type: acute cystitis Hematuria presence: without hematuria Qualified Code(s): N30.00 - Acute cystitis without hematuria Condition: Fair Instructions: Urinary Tract Infection in Men (ED), Deep Venous Thrombosis (ED) Additional Instructions: Have a follow-up ultrasound of your leg in 3-5 days to see if the DVT is getting larger. Continue taking the Lovenox as you have done previously. Referrals: Sherri Pruett MD [Primary Care Provider] - 2-3 days without fail Prescriptions: Cephalexin [Keflex] 500 mg PO TID #21 cap
[2017-04-28] MEDS ORDERED: CEPHALEXIN 500 MG CAP PO ONE (19:34)
[2017-04-28 19:54] VITALS: BP 152/85; PULSE 76; TEMP 98.2; O2SAT 96
== END 2017-04-28 19:54 | disposition home or self-care (01) ==
DX: I82.402 Acute embolism and thrombosis of unspecified deep veins of left lower extremity (principal); N30.00 Acute cystitis without hematuria; Z87.891 Personal history of nicotine dependence

== ENCOUNTER → 2017-05-05 | Outpatient (CLI) | payer OTHER, BC | LOC: CIMAGING 12:30 | PROVIDERS: ATTEND Internal Medicine | DX: Z09 Encounter for follow-up examination after completed treatment for conditions other than malignant neoplasm (principal); Z86.718 Personal history of other venous thrombosis and embolism; Z98.890 Other specified postprocedural states | CPT/HCPCS: 93971-PO ==